=== PATIENT | female | born 1960 | race Caucasian/White ===

== ENCOUNTER → 2019-02-22 | Outpatient (CLI) | payer OTHER ==
[~2019-02-22] MED LIST: IBUPROFEN 800800 M1 PO; NAPROSYN500 MG PO; PREDNISONE 20 M20 MG PO; PROVENTIL; TRAMADOL 50 MG50 MG PO; ULTRAM 50MG TAB50 MG PO; XANAX XR1 MG PO
== END ==
LOC: RAD 11:20
DX: J43.9 Emphysema, unspecified (principal)